=== PATIENT | female | born 1965 | race Hispanic/Latino ===

== ENCOUNTER 2024-04-15 11:38 | Inpatient (IN) | payer BC ==
[2024-04-15] MEDS ORDERED: Aspirin Chewable 81 MG TAB ONE (12:02)
[2024-04-15 12:07] LABS: #Basophils 0.03 10x3/uL (0.0-0.2); %Basophils 0.3 % (0.0-1.0); %Eosinophils 0.8 % (0.0-10.0); %Lymphocytes 13.1 % (21.0-51.0); %Monocytes 4.9 % (0.0-10.0); %Neutrophils 80.6 % (42.0-75.0); Hematocrit 43.5 % (36.0-47.0); Hemoglobin 13.8 g/dL (12.0-16.0); Mean Corpuscular HGB CONC 31.7 g/dL (32.0-36.0); Mean Corpuscular Hemoglobin 28.3 pg (27.0-31.0); Mean Corpuscular Volume 89.1 fL (78.0-98.0); Mean Platelet Volume 11.3 fL (7.4-10.4); Platelet Count 247 10x3/uL (130-400); RBC Distribution Width 12.6 % (11.5-14.5); Red Blood Cell (RBC) Count 4.88 mill/uL (4.20-5.40)
[2024-04-15 12:29] LABS: ALT (SGPT) 23 U/L (8-55); AST (SGOT) 17 U/L (5-34); Albumin 3.6 g/dL (3.5-5.0); Alkaline Phosphatase 109 U/L (40-110); Anion Gap 13 mmol/L (10-20); BUN (Urea Nitrogen) 14 mg/dL (9.8-20.1); Bilirubin, Total 0.5 mg/dL (0.2-1.2); Calc. Creatinine Clearance 0 mL/min (70-130); Calcium 9.1 mg/dL (7.8-10.44); Carbon Dioxide 24 mmol/L (22-29); Chloride 102 mmol/L (98-107); Estimated GFR 92; Globulin 3.6 g/dL (2.4-3.5); Glucose 291 mg/dL (70-105); Potassium 3.8 mmol/L (3.5-5.1); Protein, Total 7.2 g/dL (6.0-8.3); Sodium 135 mmol/L (136-145)
[2024-04-15 12:34] LABS: Troponin I Less than 0.010 ng/mL (< 0.028)
[2024-04-15] MEDS ORDERED: Morphine 2 MG/ML VIAL ONE (13:08)
[2024-04-15] MEDS ORDERED: Ondansetron PF 4 MG/2 ML Vial ONE (13:08)
[2024-04-15] MEDS ORDERED: Nitroglycerin 0.4 MG TAB (25 Tab Bottle) SL PRN (13:24)
[2024-04-15] MEDS ORDERED: Aspirin 325 MG TAB PO SCH (13:30)
[2024-04-15] MEDS ORDERED: Oseltamivir 75 MG CAP PO SCH (13:42)
[2024-04-15] MEDS ORDERED: Dextrose 50% Abboject 50 ML SYRINGE SLOW IVP PRN (13:43)
[2024-04-15] MEDS ORDERED: Glucagon 1 MG/ML KIT IM PRN (13:43)
[2024-04-15] MEDS ORDERED: Dextrose 5% in Water 1,000 ML IV PRN (13:43)
[2024-04-15] MEDS ORDERED: Ondansetron PF 4 MG/2 ML Vial IVP PRN (15:10)
[2024-04-15] MEDS ORDERED: Acetaminophen 650 MG Suppository PR PRN (15:10)
[2024-04-15] MEDS ORDERED: Ondansetron ODT 4 MG TAB PO PRN (15:10)
[2024-04-15 16:02] LABS: Troponin I 0.012 ng/mL (< 0.028)
[2024-04-15] MEDS: Oseltamivir 75 MG CAP PO SCH ×2 (19:58→21:31)
[2024-04-15] MEDS: Zolpidem Tartrate 5 MG TAB PO PRN (21:31)
[2024-04-15] MEDS: Insulin Lispro 100 UNIT/ML 10 ML VIAL SC PRN (21:32)
[2024-04-15 22:27] VITALS: BMI 25.2
[2024-04-15] MEDS: metFORMIN 500 MG TAB PO SCH (23:03)
[2024-04-16 04:12] LABS: #Basophils 0.03 10x3/uL (0.0-0.2); %Basophils 0.4 % (0.0-1.0); %Eosinophils 2.7 % (0.0-10.0); %Lymphocytes 21.7 % (21.0-51.0); %Monocytes 5.9 % (0.0-10.0); %Neutrophils 69.2 % (42.0-75.0); Hematocrit 39.8 % (36.0-47.0); Hemoglobin 12.8 g/dL (12.0-16.0); Mean Corpuscular HGB CONC 32.2 g/dL (32.0-36.0); Mean Corpuscular Hemoglobin 28.1 pg (27.0-31.0); Mean Corpuscular Volume 87.3 fL (78.0-98.0); Mean Platelet Volume 11.7 fL (7.4-10.4); Platelet Count 226 10x3/uL (130-400); RBC Distribution Width 12.8 % (11.5-14.5); Red Blood Cell (RBC) Count 4.56 mill/uL (4.20-5.40)
[2024-04-16 04:20] LABS: Hemoglobin A1c 11.1 % (4.0-6.0)
[2024-04-16 04:28] LABS: Anion Gap 13 mmol/L (10-20); BUN (Urea Nitrogen) 12 mg/dL (9.8-20.1); Calc. Creatinine Clearance 102 mL/min (70-130); Calcium 8.5 mg/dL (7.8-10.44); Carbon Dioxide 23 mmol/L (22-29); Cardiac Risk 2.4 (Less than 4.5); Chloride 103 mmol/L (98-107); Cholesterol 114 mg/dl (< 200 Desired); Estimated GFR 103; Glucose 158 mg/dL (70-105); HDL Cholesterol 47 mg/dL (>60 Neg Risk); LDL Cholesterol, Calculated 42 mg/dL; Potassium 3.6 mmol/L (3.5-5.1); Sodium 135 mmol/L (136-145); Triglycerides 123 mg/dL (Less than 150)
[2024-04-16] MEDS: Aspirin Chewable 81 MG TAB PO SCH (08:34)
[2024-04-16] MEDS: Enoxaparin 40 MG (0.4 mL) SYRINGE SC SCH (08:35)
[2024-04-16] MEDS: Insulin Lispro 100 UNIT/ML 10 ML VIAL SC PRN (13:30)
[2024-04-16 15:46] VITALS: BMI 25.2
[2024-04-16] MEDS: Acetaminophen 325 MG TAB PO PRN (16:55)
[2024-04-17 04:39] LABS: #Basophils 0.04 10x3/uL (0.0-0.2); %Basophils 0.6 % (0.0-1.0); %Eosinophils 3.1 % (0.0-10.0); %Lymphocytes 28.4 % (21.0-51.0); %Monocytes 8.9 % (0.0-10.0); %Neutrophils 58.7 % (42.0-75.0); Hematocrit 40.8 % (36.0-47.0); Hemoglobin 12.8 g/dL (12.0-16.0); Mean Corpuscular HGB CONC 31.4 g/dL (32.0-36.0); Mean Corpuscular Hemoglobin 28.3 pg (27.0-31.0); Mean Corpuscular Volume 90.3 fL (78.0-98.0); Mean Platelet Volume 11.7 fL (7.4-10.4); Platelet Count 224 10x3/uL (130-400); RBC Distribution Width 12.5 % (11.5-14.5); Red Blood Cell (RBC) Count 4.52 mill/uL (4.20-5.40)
[2024-04-17 04:58] LABS: ALT (SGPT) 19 U/L (8-55); AST (SGOT) 18 U/L (5-34); Alkaline Phosphatase 104 U/L (40-110); Anion Gap 12 mmol/L (10-20); BUN (Urea Nitrogen) 13 mg/dL (9.8-20.1); Bilirubin, Total 0.2 mg/dL (0.2-1.2); Calc. Creatinine Clearance 109 mL/min (70-130); Calcium 8.6 mg/dL (7.8-10.44); Carbon Dioxide 23 mmol/L (22-29); Chloride 105 mmol/L (98-107); Estimated GFR 104; Globulin 3.3 g/dL (2.4-3.5); Glucose 151 mg/dL (70-105); Potassium 3.5 mmol/L (3.5-5.1); Protein, Total 6.3 g/dL (6.0-8.3); Sodium 136 mmol/L (136-145)
[2024-04-17] MEDS: Atorvastatin Calcium 40 MG TAB PO SCH (08:38)
[2024-04-17] MEDS ORDERED: Iopamidol-370 76% 500 ML MDV (1 ML CHARGE) ONE (09:11)
[2024-04-17] MEDS: Aspirin 325 MG TAB PO SCH (09:59)
[2024-04-17] MEDS: Acetaminophen/Codeine 30-300mg Tablet PO PRN (11:40)
[2024-04-17 12:49] LABS: Troponin I Less than 0.010 ng/mL (< 0.028)
[2024-04-17] MEDS: Methocarbamol 500 MG TAB PO PRN (21:44)
[2024-04-18 04:40] LABS: ALT (SGPT) 21 U/L (8-55); AST (SGOT) 22 U/L (5-34); Albumin 3.1 g/dL (3.5-5.0); Alkaline Phosphatase 96 U/L (40-110); Anion Gap 12 mmol/L (10-20); BUN (Urea Nitrogen) 11 mg/dL (9.8-20.1); Bilirubin, Total 0.2 mg/dL (0.2-1.2); Calc. Creatinine Clearance 109 mL/min (70-130); Calcium 8.5 mg/dL (7.8-10.44); Carbon Dioxide 22 mmol/L (22-29); Chloride 106 mmol/L (98-107); Estimated GFR 104; Globulin 3.4 g/dL (2.4-3.5); Glucose 173 mg/dL (70-105); Potassium 3.6 mmol/L (3.5-5.1); Protein, Total 6.5 g/dL (6.0-8.3); Sodium 136 mmol/L (136-145)
[2024-04-18 06:35] LABS: #Basophils 0.04 10x3/uL (0.0-0.2); %Basophils 0.6 % (0.0-1.0); %Eosinophils 3.6 % (0.0-10.0); %Lymphocytes 36.9 % (21.0-51.0); %Monocytes 9.5 % (0.0-10.0); %Neutrophils 49.1 % (42.0-75.0); Hematocrit 41.7 % (36.0-47.0); Mean Corpuscular HGB CONC 31.2 g/dL (32.0-36.0); Mean Corpuscular Hemoglobin 28.1 pg (27.0-31.0); Mean Corpuscular Volume 90.3 fL (78.0-98.0); Mean Platelet Volume 11.3 fL (7.4-10.4); Platelet Count 224 10x3/uL (130-400); RBC Distribution Width 12.5 % (11.5-14.5); Red Blood Cell (RBC) Count 4.62 mill/uL (4.20-5.40)
[2024-04-18 12:17] VITALS: BP 113/70; TEMP 97.8
== END 2024-04-18 14:33 | disposition home or self-care (01) | DRG 195 ==
LOC: ERS 11:38 → ERHOLD 13:14 → 2SE 18:48 → OBSVTOIN 04-17 14:52
PROVIDERS: ADMIT Family Medicine; ATTEND Internal Medicine
DX: J10.1 Influenza due to other identified influenza virus with other respiratory manifestations (principal); E11.9 Type 2 diabetes mellitus without complications; I10 Essential (primary) hypertension; E78.5 Hyperlipidemia, unspecified; Z88.8 Allergy status to other drugs, medicaments and biological substances; Z79.84 Long term (current) use of oral hypoglycemic drugs; Z79.899 Other long term (current) drug therapy; I25.2 Old myocardial infarction; F32.A Depression, unspecified
CPT/HCPCS: 36415; 36416; 71045; 71275; 80048; 80053; 80061; 83036; 83880; 84484; 85025; 87428; 93005; 93010; 94760; 96372; 96374; 96375; G0378; J1650; J1815; J2272; J2405; Q9967